=== PATIENT | female | born 1950 | race Caucasian/White ===

== ENCOUNTER 2023-03-08 20:49 | Inpatient (IN) | payer MEDICARE, OTHER ==
[~2023-03-08] VITALS: Ht 160 cm; Wt 86.0 kg
[2023-03-08 21:31] LABS: BASOPHILS # (AUTO) 0.1 X10'3 (0-0.2); BASOPHILS % (AUTO) 0.8 % (0-1); EOSINOPHILS % (AUTO) 0.3 % (0-6); HEMATOCRIT 49.6 % (35.0-45.0); HEMOGLOBIN 16.8 g/dl (12.0-16.0); LYMPHOCYTES # (AUTO) 1.7 X10'3 (1.1-4.8); LYMPHOCYTES % (AUTO) 17.3 % (21-51); MEAN CORPUSCULAR HEMOGLOBIN 32.6 PG (27.0-31.0); MEAN CORPUSCULAR HGB CONC 33.8 g/dL (33.0-36.5); MEAN CORPUSCULAR VOLUME 96.4 FL (78-98); MEAN PLATELET VOLUME 7.6 FL (7.4-10.4); MONOCYTES # (AUTO) 0.9 X10'3 (0-0.9); MONOCYTES % (AUTO) 8.9 % (2-12); NEUTROPHILS # (AUTO) 7.3 X10'3 (1.8-7.7); NEUTROPHILS % (AUTO) 72.7 % (42-75); PLATELET COUNT 277 X10'3 (140-440); RED BLOOD COUNT 5.14 X10'6 (4.20-5.60); RED CELL DISTRIBUTION WIDTH 13.7 % (11.5-14.5); WHITE BLOOD COUNT 10.1 X10'3 (4.5-11.0)
[2023-03-08 21:52] LABS: ALANINE AMINOTRANSFERASE 891 U/L (12-78); ALBUMIN 3.7 G/DL (3.4-5.0); ALKALINE PHOSPHATASE 730 IU/L (46-116); ANION GAP 13 (8-16); ASPARTATE AMINO TRANSFERASE 426 U/L (10-37); BILIRUBIN,TOTAL 4.7 MG/DL (0.1-1.0); BLOOD UREA NITROGEN 14 MG/DL (7-18); BUN/CREATININE RATIO 15.2 (10.0-20.0); CALCIUM 9.6 MG/DL (8.5-10.1); CHLORIDE 102 MMOL/L (99-107); CREATININE 0.92 MG/DL (0.40-0.90); GLUCOSE 134 MG/DL (70-104); MAGNESIUM 1.6 MG/DL (1.5-2.4); SODIUM 141 MMOL/L (135-145); TOTAL CARBON DIOXIDE 26.1 MMOL/L (24-32); eGFR 60 ML/MIN
[2023-03-08 21:54] LABS: ALBUMIN/GLOBULIN RATIO 0.9 (1.1-1.5); TOTAL PROTEIN 7.8 G/DL (6.4-8.2)
[2023-03-08 21:56] LABS: POTASSIUM 2.9 MMOL/L (3.5-5.1)
[2023-03-08] MEDS ORDERED: acetaminophen 650mg rectal suppository RC PRN (22:00)
[2023-03-08] MEDS ORDERED: potassium Cl 40MEQ/1/2NS 520ml 520 ML IV PRN (22:00)
[2023-03-08] MEDS ORDERED: morphine 2 MG/ML inj. syringe IV PRN (22:00)
[2023-03-08] MEDS ORDERED: potassium Cl 20 mEq SR tablet PO PRN ×2 (22:00)
[2023-03-08] MEDS ORDERED: magnesium Cl slow-release 64mg tablet PO PRN (22:00)
[2023-03-08] MEDS ORDERED: ondansetron/PF 4mg/2ml inj IV PRN (22:00)
[2023-03-08] MEDS ORDERED: magnesium 2GM in 50ml NS 50 ML IV PRN (22:00)
[2023-03-08] MEDS ORDERED: magnesium 4gm in 100ml NS 100 ML IV PRN (22:00)
[2023-03-08] MEDS: potassium Cl 40MEQ/1/2NS 520ml 520 ML IV SCH (23:18)
[2023-03-08] MEDS: normal saline 1000ml 1,000 ML IV SCH (23:18)
[2023-03-08] MEDS ORDERED: DULO60CA65 PO (23:30)
[2023-03-08] MEDS ORDERED: TRIA15CR62 TOP (23:30)
[2023-03-08] MEDS ORDERED: GABA300C PO (23:30)
[2023-03-08] MEDS ORDERED: LOSA-416 PO (23:30)
[2023-03-08] MEDS ORDERED: DICL100G30 TOP (23:30)
[2023-03-08] MEDS ORDERED: diltiazem-D5W 125mg/125ml 125 ML IV ONE (23:30)
[2023-03-08] MEDS ORDERED: diltiazem-NS 100mg/100ml 100 ML IV ONE (23:33)
[2023-03-09] VITALS (25 sets, daily range): BP systolic 119–154; BP diastolic 66–117; PULSE 57–78; RESP 14–24; TEMP 97.5–98.8; O2SAT 93–98
--- NOTE | 2023-03-09 01:00 | NUR ---
Patient in room PCU 3028. I have received report from Violetta PRUITT RN and had the opportunity to ask questions and assume patient care.
--- NOTE | 2023-03-09 03:02 | NUR ---
CALLED RAMO DE LA [facility]A TO INFORM THAT THE PT HAS BEEN RUNNING SINUS RHYTHM SINCE SHE CAME TO [facility] @0130. WAS ON 15ML/HR CARDIZEM AND SUGGESTED TO DECREASE TO 10ML/HR. HENCE, THE CHANGE
[2023-03-09] MEDS: potassium Cl 40MEQ/1/2NS 520ml 520 ML IV SCH (03:22)
[2023-03-09 06:36] LABS: BASOPHILS # (AUTO) 0.1 X10'3 (0-0.2); BASOPHILS % (AUTO) 0.6 % (0-1); EOSINOPHILS % (AUTO) 0.6 % (0-6); HEMATOCRIT 43.9 % (35.0-45.0); HEMOGLOBIN 14.7 g/dl (12.0-16.0); LYMPHOCYTES # (AUTO) 1.9 X10'3 (1.1-4.8); MEAN CORPUSCULAR HEMOGLOBIN 32.3 PG (27.0-31.0); MEAN CORPUSCULAR HGB CONC 33.4 g/dL (33.0-36.5); MEAN CORPUSCULAR VOLUME 96.8 FL (78-98); MEAN PLATELET VOLUME 9.5 FL (7.4-10.4); MONOCYTES # (AUTO) 0.8 X10'3 (0-0.9); MONOCYTES % (AUTO) 9.2 % (2-12); NEUTROPHILS # (AUTO) 5.5 X10'3 (1.8-7.7); NEUTROPHILS % (AUTO) 66.6 % (42-75); PLATELET COUNT 204 X10'3 (140-440); RED BLOOD COUNT 4.54 X10'6 (4.20-5.60); RED CELL DISTRIBUTION WIDTH 13.8 % (11.5-14.5); WHITE BLOOD COUNT 8.2 X10'3 (4.5-11.0)
[2023-03-09 06:42] LABS: ALBUMIN 3.1 G/DL (3.4-5.0); ANION GAP 7 (8-16); BLOOD UREA NITROGEN 14 MG/DL (7-18); BUN/CREATININE RATIO 16.1 (10.0-20.0); CALCIUM 8.9 MG/DL (8.5-10.1); CHLORIDE 105 MMOL/L (99-107); CREATININE 0.87 MG/DL (0.40-0.90); GLUCOSE 93 MG/DL (70-104); MAGNESIUM 1.7 MG/DL (1.5-2.4); POTASSIUM 3.9 MMOL/L (3.5-5.1); SODIUM 140 MMOL/L (135-145); TOTAL CARBON DIOXIDE 27.8 MMOL/L (24-32); eGFR 64 ML/MIN
--- NOTE | 2023-03-09 06:44 | NUR ---
Patient in room PCU 3028. I have received report from Yvette PUTNAM and had the opportunity to ask questions and assume patient care. Jesusita PUTNAM, Justin PUTNAM
--- NOTE | 2023-03-09 06:46 | NUR ---
Problems reprioritized. Patient report given, questions answered & plan of care reviewed with Justin and Jesusita RNs.
[2023-03-09] MEDS ORDERED: diltiazem-NS 100mg/100ml 100 ML IV SCH (07:00)
[2023-03-09] MEDS: normal saline 1000ml 1,000 ML IV SCH ×2 (07:18→17:32)
[2023-03-09] MEDS: K and/or MAG REPLACEMENT MC SCH ×2 (07:21→20:00)
[2023-03-09 09:38] LABS: ALANINE AMINOTRANSFERASE 687 U/L (12-78); ALBUMIN/GLOBULIN RATIO 0.9 (1.1-1.5); ALKALINE PHOSPHATASE 596 IU/L (46-116); ASPARTATE AMINO TRANSFERASE 289 U/L (10-37); BILIRUBIN,DIRECT 1.7 MG/DL (0-0.3); BILIRUBIN,TOTAL 2.7 MG/DL (0.1-1.0); TOTAL PROTEIN 6.7 G/DL (6.4-8.2)
[2023-03-09 09:46] LABS: LIPASE 2684 U/L (73-393)
[2023-03-09] MEDS ORDERED: piperacillin/tazo 3.375gm/50ml 50 ML IV SCH (10:25)
--- NOTE | 2023-03-09 11:22 | NUR ---
Order change for Ditiazem per MD, decrease gtt to 5mL/hr. Jesusita PUTNAM
--- NOTE | 2023-03-09 13:02 | NUR ---
Order placed for PT INR and PTT per telephone order, TOM PUTNAM
[2023-03-09 13:46] LABS: APTT 27 SECONDS (22-32)
--- NOTE | 2023-03-09 13:48 | NUR ---
Spoke with MD about plan for patient. Will be doing MRCP and pt to advance to clear liquid diet post MRCP. Will continue to monitor labs and pain level and evaluate necessity of ERCP. Jesusita PUTNAM
[2023-03-09] MEDS: piperacillin/tazo 3.375gm/50ml 50 ML IV SCH (16:00)
--- NOTE | 2023-03-09 16:39 | NUR ---
Pt to MRI, Jesusita PUTNAM
[2023-03-09] MEDS: gabapentin 300mg capsule PO SCH (20:29)
[2023-03-10] MEDS: piperacillin/tazo 3.375gm/50ml 50 ML IV SCH ×2 (00:46→08:40)
[2023-03-10 02:00] VITALS: BP 120/60; PULSE 60; RESP 18; TEMP 97.6; O2SAT 96
--- NOTE | 2023-03-10 03:48 | NUR ---
ADDICTIONS RECOVERY SPECIALIST documentation: I have reviewed and agree with assessment performed and documented by GIANCARLO Ortega
[2023-03-10] MEDS: normal saline 1000ml 1,000 ML IV SCH (04:02)
[2023-03-10 06:30] LABS: BASOPHILS # (AUTO) 0.1 X10'3 (0-0.2); BASOPHILS % (AUTO) 0.9 % (0-1); EOSINOPHILS # (AUTO) 0.3 X10'3 (0-0.9); EOSINOPHILS % (AUTO) 4.6 % (0-6); HEMATOCRIT 42.2 % (35.0-45.0); HEMOGLOBIN 14.2 g/dl (12.0-16.0); LYMPHOCYTES # (AUTO) 1.8 X10'3 (1.1-4.8); LYMPHOCYTES % (AUTO) 24.5 % (21-51); MEAN CORPUSCULAR HEMOGLOBIN 32.5 PG (27.0-31.0); MEAN CORPUSCULAR HGB CONC 33.6 g/dL (33.0-36.5); MEAN CORPUSCULAR VOLUME 96.8 FL (78-98); MONOCYTES # (AUTO) 0.7 X10'3 (0-0.9); MONOCYTES % (AUTO) 9.7 % (2-12); NEUTROPHILS # (AUTO) 4.4 X10'3 (1.8-7.7); NEUTROPHILS % (AUTO) 60.3 % (42-75); PLATELET COUNT 214 X10'3 (140-440); RED BLOOD COUNT 4.36 X10'6 (4.20-5.60); RED CELL DISTRIBUTION WIDTH 13.7 % (11.5-14.5); WHITE BLOOD COUNT 7.2 X10'3 (4.5-11.0)
[2023-03-10 06:45] LABS: ALANINE AMINOTRANSFERASE 455 U/L (12-78); ALBUMIN 2.9 G/DL (3.4-5.0); ALBUMIN/GLOBULIN RATIO 0.9 (1.1-1.5); ALKALINE PHOSPHATASE 482 IU/L (46-116); ANION GAP 11 (8-16); ASPARTATE AMINO TRANSFERASE 112 U/L (10-37); BILIRUBIN,TOTAL 1.2 MG/DL (0.1-1.0); BLOOD UREA NITROGEN 12 MG/DL (7-18); BUN/CREATININE RATIO 15.6 (10.0-20.0); CALCIUM 8.8 MG/DL (8.5-10.1); CHLORIDE 106 MMOL/L (99-107); CREATININE 0.77 MG/DL (0.40-0.90); GLUCOSE 81 MG/DL (70-104); LIPASE 201 U/L (73-393); MAGNESIUM 1.5 MG/DL (1.5-2.4); POTASSIUM 3.2 MMOL/L (3.5-5.1); SODIUM 144 MMOL/L (135-145); TOTAL CARBON DIOXIDE 26.8 MMOL/L (24-32); TOTAL PROTEIN 6.2 G/DL (6.4-8.2); eGFR 74 ML/MIN
--- NOTE | 2023-03-10 06:53 | NUR ---
Patient in room PCU 3028. I have received report from Mary WORKMAN and had the opportunity to ask questions and assume patient care.
[2023-03-10 07:00] VITALS: BP 147/72; PULSE 77; RESP 18; TEMP 97.4; O2SAT 97
[2023-03-10 08:00] VITALS: RESP 18; O2SAT 97
[2023-03-10] MEDS: K and/or MAG REPLACEMENT MC SCH (08:00)
[2023-03-10] MEDS ORDERED: duloxetine 30mg CAPSULE.DR PO SCH (08:00)
[2023-03-10] MEDS ORDERED: losartan 50mg tablet PO SCH (08:00)
[2023-03-10] MEDS: gabapentin 300mg capsule PO SCH ×2 (08:39→13:50)
[2023-03-10 11:00] VITALS: BP 187/91; PULSE 93; RESP 16; TEMP 97.4; O2SAT 95
== END 2023-03-10 14:15 | disposition home or self-care (01) | DRG 440 ==
LOC: ER 20:49 → ED HOLD 22:20 → UNDOADMIN 22:20 → ED HOLD 23:36 → PCU 3S 03-09 01:33
PROVIDERS: ADMIT Internal Medicine; ATTEND Family Medicine
DX: K85.90 Acute pancreatitis without necrosis or infection, unspecified (principal); I48.0 Paroxysmal atrial fibrillation; K80.50 Calculus of bile duct without cholangitis or cholecystitis without obstruction; I10 Essential (primary) hypertension; R74.01 Elevation of levels of liver transaminase levels; E87.6 Hypokalemia; F32.A Depression, unspecified; Z90.49 Acquired absence of other specified parts of digestive tract; Z79.899 Other long term (current) drug therapy
CPT/HCPCS: 36415; 74181; 80048; 80053; 80076; 83605; 83690; 83735; 84145; 85025; 85610; 85730; 87040; 99285; G0378; J2270; J2543; J3480; J3490; J7030